=== PATIENT | female | born 1975 | race Caucasian/White ===

== ENCOUNTER 2018-05-07 12:26 | Emergency (ER) | payer MEDICAID ==
--- NOTE | 2018-05-07 12:37 | ERPHSYRPT ---
- History of Present Illness Time Seen by Provider: 05/07/18 12:36 Historian: patient Exam Limitations: no limitations Physician History: 42 y/o white female presents with sudden onset of upper abd pain. intermittently severe sharp and crampy. pt has had a cholecystectomy in the past. no n/v/d. no h/o ulcer dz. pt is currently on her menstrual period Timing/Duration: today, intermittent Quality: cramping, sharpness, stabbing Abdominal Pain Onset Location: epigastric Pain Radiation: no radiation Severity of Pain-Max: moderate Severity of Pain-Current: moderate Modifying Factors: Improves With: nothing Associated Symptoms: nausea, other (loose stools this am) Previous symptoms: no prior history Allergies/Adverse Reactions: No Known Drug Allergies Allergy (Verified 05/07/18 12:44) Hx Tetanus, Diphtheria Vaccination/Date Given: Yes (2010) Hx Influenza Vaccination/Date Given: No Hx Pneumococcal Vaccination/Date Given: No - Review of Systems Constitutional: No Symptoms Eyes: No Symptoms Ears, Nose, & Throat: No Symptoms Respiratory: No Symptoms Cardiac: No Symptoms Abdominal/Gastrointestinal: Abdominal Pain, Nausea, No Vomiting, No Diarrhea Genitourinary Symptoms: No Symptoms, No Dysuria, No Frequency, No Hematuria Musculoskeletal: No Symptoms Skin: No Symptoms Neurological: No Symptoms Psychological: Anxiety Endocrine: No Symptoms Hematologic/Lymphatic: No Symptoms Immunological/Allergic: No Symptoms All Other Systems: Reviewed and Negative - Past Medical History Pertinent Past Medical History: No Neurological History: No Pertinent History ENT History: No Pertinent History Cardiac History: No Pertinent History Respiratory History: No Pertinent History Endocrine Medical History: No Pertinent History Musculoskeletal History: No Pertinent History GI Medical History: No Pertinent History History: No Pertinent History Psycho-Social History: No Pertinent History Female Reproductive Disorders: No Pertinent History - Past Surgical History Past Surgical History: Yes Neuro Surgical History: No Pertinent History Cardiac: No Pertinent History Respiratory: No Pertinent History Gastrointestinal: No Pertinent History Genitourinary: No Pertinent History Musculoskeletal: No Pertinent History Female Surgical History: Tubal Ligation, Other Other Surgical History: tonsilectomy as child - Social History Smoking Status: Never smoker Exposure to second hand smoke: No Drug Use: none Patient Lives Alone: No - Nursing Vital Signs Nursing Vital Signs: Initial Vital Signs Temperature 97.3 F 05/07/18 12:31 Pulse Rate 62 05/07/18 12:31 Respiratory Rate 24 05/07/18 12:31 Blood Pressure 155/97 05/07/18 12:31 O2 Sat by Pulse Oximetry 100 05/07/18 12:31 Pain Scale Pain Intensity 0 - Physical Exam General Appearance: moderate distress, alert, anxiety Eye Exam: PERRL/EOMI, eyes nml inspection Ears, Nose, Throat Exam: normal ENT inspection, moist mucous membranes Neck Exam: normal inspection, non-tender, supple, full range of motion Respiratory Exam: normal breath sounds, lungs clear, airway intact, No chest tenderness, No respiratory distress, No accessory muscle use, No rhonchi, No wheezing, No stridor Cardiovascular Exam: regular rate/rhythm, normal heart sounds, normal peripheral pulses Gastrointestinal/Abdomen Exam: soft, normal bowel sounds, tenderness (epigastric ), guarding, No rebound Pelvic Exam: not done Rectal Exam: not done Back Exam: normal inspection, normal range of motion, No CVA tenderness, No vertebral tenderness Extremity Exam: normal inspection, normal range of motion, pelvis stable Neurologic Exam: alert, oriented x 3, cooperative, 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 Skin Exam: normal color, warm, dry Lymphatic Exam: No adenopathy SpO2 Interpretation: normal O2 Delivery: Room Air - Course Nursing assessment & vital signs reviewed: Yes EKG Interpreted by Me: RATE ([id number]), Sinus Rhythm, NORMAL AXIS, Non-specific ST Changes Ordered Tests: Active Orders 24 hr Category Date Time Status Clean Catch Urine Specimen STAT Care 05/07/18 12:42 Active EKG-ER Only STAT Care 05/07/18 12:42 Active IV Insertion STAT Care 05/07/18 12:42 Active ABDOMEN AND PELVIS W/0 CONTRAS [CT] Stat Exams 05/07/18 12:42 Completed AMYLASE Stat Lab 05/07/18 13:10 Completed CBC W DIFF Stat Lab 05/07/18 13:10 Completed CMP Stat Lab 05/07/18 13:10 Completed HCG QUALITATIVE,SERUM Stat Lab 05/07/18 13:10 Completed LIPASE Stat Lab 05/07/18 13:10 Completed Lactic Acid Stat Lab 05/07/18 12:50 Completed Lactic Acid Stat Lab 05/07/18 16:08 Results TROPONIN Q3H Lab 05/07/18 13:10 Completed TROPONIN Q3H Lab 05/07/18 16:17 Received TROPONIN Q3H Lab 05/07/18 19:00 Ordered TROPONIN Q3H Lab 05/07/18 22:00 Ordered UA W/RFX UR CULTURE Stat Lab 05/07/18 16:11 Completed Urine Triage Profile Stat Lab 05/07/18 16:11 Ordered Medication Summary Discontinued Medications Generic Name Dose Route Start Last Admin Trade Name Freq PRN Reason Stop Dose Admin Hydromorphone HCl 1 mg 05/07/18 12:42 05/07/18 12:56 Hydromorphone 1 Mg/Ml Ampule IV 05/07/18 12:43 1 mg STAT ONE Administration Hydromorphone HCl Confirm 05/07/18 12:50 Hydromorphone 1 Mg/Ml Ampule Administered 05/07/18 12:51 Dose 1 mg .ROUTE .STK-MED ONE Sodium Chloride 1,000 mls @ 999 mls/hr 05/07/18 12:42 05/07/18 15:04 Sodium Chloride 0.9% 1000 Ml IV 05/07/18 13:42 Infused .Q1H1M STA Infusion Sodium Chloride Confirm 05/07/18 12:50 Sodium Chloride 0.9% 1000 Ml Administered 05/07/18 12:51 Dose 1,000 mls @ ud .ROUTE .STK-MED ONE Sodium Chloride Confirm 05/07/18 13:29 Sodium Chloride 0.9% 1000 Ml Administered 05/07/18 13:30 Dose 1,000 mls @ ud .ROUTE .STK-MED ONE Ondansetron HCl 4 mg 05/07/18 12:42 05/07/18 12:56 Zofran 4 Mg/2 Ml Vial IV 05/07/18 12:43 4 mg STAT ONE Administration Ondansetron HCl Confirm 05/07/18 12:50 Zofran 4 Mg/2 Ml Vial Administered 05/07/18 12:51 Dose 4 mg .ROUTE .STK-MED ONE Lab/Rad Data: Laboratory Result Diagrams 05/07/18 13:10 05/07/18 13:10 Laboratory Results 05/07/18 05/07/18 05/07/18 Range/Units 16:11 16:08 13:10 WBC (4.0-10.5) K/mm3 RBC (4.1-5.4) M/mm3 Hgb (12.0-16.0) gm/dl Hct (35-47) % MCV (78-100) fl MCH (26-32) pg MCHC (32-36) g/dl RDW (11.5-14.0) % Plt Count (150-450) K/mm3 MPV (6-9.5) fl Gran % (36.0-66.0) % Eos # (Auto) (0-0.5) Absolute Lymphs (auto) (1.0-4.6) Absolute Monos (auto) (0.0-1.3) Lymphocytes % (24.0-44.0) % Monocytes % (0.0-12.0) % Eosinophils % (0.00-5.0) % Basophils % (0.0-0.4) % Absolute Granulocytes (1.4-6.9) Basophils # (0-0.4) Sodium (137-145) mmol/L Potassium (3.5-5.1) mmol/L Chloride (98-107) mmol/L Carbon Dioxide (22-30) mmol/L Anion Gap (5-15) MEQ/L BUN (7-17) mg/dL Creatinine (0.52-1.04) mg/dL Estimated GFR ML/MIN Glucose (74-106) mg/dL Lactic Acid 2.0 (0.4-2.0) Calcium (8.4-10.2) mg/dL Total Bilirubin (0.2-1.3) mg/dL AST (14-36) U/L ALT (0-35) U/L Alkaline Phosphatase (38-126) U/L Troponin I (0.000-0.034) ng/mL Serum Total Protein (6.3-8.2) g/dL Albumin (3.5-5.0) g/dL Amylase (30-110) U/L Lipase (23-300) U/L Serum , Qual NEGATIVE (Negative) Urine Color NELI (YELLOW) Urine Appearance CLEAR (CLEAR) Urine pH 5.0 (5-6) Ur Specific [place] 1.028 (1.005-1.025) Urine Protein NEGATIVE (Negative) Urine Ketones TRACE (NEGATIVE) Urine Blood SMALL (0-5) Jovany/ul Urine Nitrite NEGATIVE (NEGATIVE) Urine Bilirubin NEGATIVE (NEGATIVE) Urine Urobilinogen 4 (0-1) mg/dL Ur Leukocyte Esterase NEGATIVE (NEGATIVE) Urine WBC (Auto) 0-2 (0-5) /HPF Urine RBC (Auto) 6-10 (0-2) /HPF U Hyaline Cast (Auto) >50 (0-2) /LPF U Epithel Cells (Auto) RARE (FEW) /HPF Urine Bacteria (Auto) RARE (NEGATIVE) /HPF Urine Mucus (Auto) SLIGHT (NEGATIVE) /HPF Urine Culture Reflexed NO (NO) Urine Glucose NEGATIVE (NEGATIVE) mg/dL 05/07/18 05/07/18 05/07/18 Range/Units 13:10 13:10 13:10 WBC 11.3 H (4.0-10.5) K/mm3 RBC 4.93 (4.1-5.4) M/mm3 Hgb 14.1 (12.0-16.0) gm/dl Hct 42.9 (35-47) % MCV 87.0 (78-100) fl MCH 28.6 (26-32) pg MCHC 32.9 (32-36) g/dl RDW 13.7 (11.5-14.0) % Plt Count 313 (150-450) K/mm3 MPV 10.9 H (6-9.5) fl Gran % 75.5 H (36.0-66.0) % Eos # (Auto) 0.22 (0-0.5) Absolute Lymphs (auto) 1.63 (1.0-4.6) Absolute Monos (auto) 0.91 (0.0-1.3) Lymphocytes % 14.4 L (24.0-44.0) % Monocytes % 8.0 (0.0-12.0) % Eosinophils % 1.9 (0.00-5.0) % Basophils % 0.2 (0.0-0.4) % Absolute Granulocytes 8.53 H (1.4-6.9) Basophils # 0.02 (0-0.4) Sodium 139 (137-145) mmol/L Potassium 4.1 (3.5-5.1) mmol/L Chloride 107 (98-107) mmol/L Carbon Dioxide 22 (22-30) mmol/L Anion Gap 14.5 (5-15) MEQ/L BUN 14 (7-17) mg/dL Creatinine 0.78 (0.52-1.04) mg/dL Estimated GFR > 60.0 ML/MIN Glucose 142 H (74-106) mg/dL Lactic Acid (0.4-2.0) Calcium 10.9 H (8.4-10.2) mg/dL Total Bilirubin 0.80 (0.2-1.3) mg/dL AST 37 H (14-36) U/L ALT 33 (0-35) U/L Alkaline Phosphatase 116 (38-126) U/L Troponin I < 0.012 (0.000-0.034) ng/mL Serum Total Protein 7.6 (6.3-8.2) g/dL Albumin 4.1 (3.5-5.0) g/dL Amylase 73 (30-110) U/L Lipase 113 (23-300) U/L Serum , Qual (Negative) Urine Color (YELLOW) Urine Appearance (CLEAR) Urine pH (5-6) Ur Specific [place] (1.005-1.025) Urine Protein (Negative) Urine Ketones (NEGATIVE) Urine Blood (0-5) Jovany/ul Urine Nitrite (NEGATIVE) Urine Bilirubin (NEGATIVE) Urine Urobilinogen (0-1) mg/dL Ur Leukocyte Esterase (NEGATIVE) Urine WBC (Auto) (0-5) /HPF Urine RBC (Auto) (0-2) /HPF U Hyaline Cast (Auto) (0-2) /LPF U Epithel Cells (Auto) (FEW) /HPF Urine Bacteria (Auto) (NEGATIVE) /HPF Urine Mucus (Auto) (NEGATIVE) /HPF Urine Culture Reflexed (NO) Urine Glucose (NEGATIVE) mg/dL 05/07/18 Range/Units 12:50 WBC (4.0-10.5) K/mm3 RBC (4.1-5.4) M/mm3 Hgb (12.0-16.0) gm/dl Hct (35-47) % MCV (78-100) fl MCH (26-32) pg MCHC (32-36) g/dl RDW (11.5-14.0) % Plt Count (150-450) K/mm3 MPV (6-9.5) fl Gran % (36.0-66.0) % Eos # (Auto) (0-0.5) Absolute Lymphs (auto) (1.0-4.6) Absolute Monos (auto) (0.0-1.3) Lymphocytes % (24.0-44.0) % Monocytes % (0.0-12.0) % Eosinophils % (0.00-5.0) % Basophils % (0.0-0.4) % Absolute Granulocytes (1.4-6.9) Basophils # (0-0.4) Sodium (137-145) mmol/L Potassium (3.5-5.1) mmol/L Chloride (98-107) mmol/L Carbon Dioxide (22-30) mmol/L Anion Gap (5-15) MEQ/L BUN (7-17) mg/dL Creatinine (0.52-1.04) mg/dL Estimated GFR ML/MIN Glucose (74-106) mg/dL Lactic Acid 2.3 H (0.4-2.0) Calcium (8.4-10.2) mg/dL Total Bilirubin (0.2-1.3) mg/dL AST (14-36) U/L ALT (0-35) U/L Alkaline Phosphatase (38-126) U/L Troponin I (0.000-0.034) ng/mL Serum Total Protein (6.3-8.2) g/dL Albumin (3.5-5.0) g/dL Amylase (30-110) U/L Lipase (23-300) U/L Serum , Qual (Negative) Urine Color (YELLOW) Urine Appearance (CLEAR) Urine pH (5-6) Ur Specific [place] (1.005-1.025) Urine Protein (Negative) Urine Ketones (NEGATIVE) Urine Blood (0-5) Jovany/ul Urine Nitrite (NEGATIVE) Urine Bilirubin (NEGATIVE) Urine Urobilinogen (0-1) mg/dL Ur Leukocyte Esterase (NEGATIVE) Urine WBC (Auto) (0-5) /HPF Urine RBC (Auto) (0-2) /HPF U Hyaline Cast (Auto) (0-2) /LPF U Epithel Cells (Auto) (FEW) /HPF Urine Bacteria (Auto) (NEGATIVE) /HPF Urine Mucus (Auto) (NEGATIVE) /HPF Urine Culture Reflexed (NO) Urine Glucose (NEGATIVE) mg/dL - Progress Progress: improved, re-examined Progress Note: 05/07/18 16:43 ct abd/pelvis-no acute process. Counseled pt/family regarding: lab results, diagnosis, need for follow-up, rad results - Departure Time of Disposition: 16:43 Departure Disposition: Home Clinical Impression: Abdominal pain Condition: Stable Critical Care Time: No Referrals: LUDWIG RENEE [Primary Care Provider] - Additional Instructions: drink plenty of fluids. follow up with primary doctor for further management. add ibuprofen for pain Prescriptions: Hydrocodone/APAP 5-325 Tab^^^ [[place] 5-325 Tablet^^^] 1 tab PO Q8H PRN PRN #5 tablet MDD 3 PRN Reason: Pain
[2018-05-07] MEDS ORDERED: Sodium Chloride 0.9% 1000 ML 1,000 ML IV STA (12:42)
[2018-05-07] MEDS ORDERED: Hydromorphone 1 mg/ml Ampule IV ONE (12:42)
[2018-05-07] MEDS ORDERED: Zofran 4 MG/2 ML VIAL IV ONE (12:42)
[2018-05-07] MEDS ORDERED: Hydromorphone 1 mg/ml Ampule ONE (12:50)
[2018-05-07] MEDS ORDERED: Zofran 4 MG/2 ML VIAL ONE (12:50)
[2018-05-07] MEDS ORDERED: Sodium Chloride 0.9% 1000 ML 1,000 ML ONE ×2 (12:50→13:29)
[2018-05-07 12:55] LABS: Lactic Acid 2.3 (0.4-2.0)
[2018-05-07 13:16] LABS: BASOPHIL % 0.2 % (0.0-0.4); Basophil (Absolute #) 0.02 (0-0.4); Eosinophil % 1.9 % (0.00-5.0); Eosinophil (Absolute #) 0.22 (0-0.5); Granulocyte Absolute (ANC) 8.53 (1.4-6.9); Granulocytes % 75.5 % (36.0-66.0); Hematocrit 42.9 % (35-47); Hemoglobin 14.1 gm/dl (12.0-16.0); Lymphocyte (Absolute #) 1.63 (1.0-4.6); Lymphocytes % 14.4 % (24.0-44.0); Mean Corpuscular Hemoglobin 28.6 pg (26-32); Mean Corpuscular Hgb Concent. 32.9 g/dl (32-36); Mean Platelet Volume 10.9 fl (6-9.5); Monocyte (Absolute #) 0.91 (0.0-1.3); Platelet Count 313 K/mm3 (150-450); Red Blood Count 4.93 M/mm3 (4.1-5.4); Red Cell Distribution Width 13.7 % (11.5-14.0); White Blood Count 11.3 K/mm3 (4.0-10.5)
[2018-05-07 13:28] LABS: ALBUMIN 4.1 g/dL (3.5-5.0); ALKALINE PHOSPHATASE 116 U/L (38-126); AMYLASE 73 U/L (30-110); ANION GAP 14.5 MEQ/L (5-15); BLOOD UREA NITROGEN 14 mg/dL (7-17); CHLORIDE 107 mmol/L (98-107); Calcium 10.9 mg/dL (8.4-10.2); Carbon Dioxide 22 mmol/L (22-30); Creatinine 1 0.78 mg/dL (0.52-1.04); Glucose 142 mg/dL (74-106); LIPASE 113 U/L (23-300); Potassium 4.1 mmol/L (3.5-5.1); SGOT/AST 37 U/L (14-36); SGPT/ALT 33 U/L (0-35); SODIUM 139 mmol/L (137-145); Total Protein 7.6 g/dL (6.3-8.2)
--- NOTE | 2018-05-07 14:41 | XRAY ---
Indication: Intermittent abdominal pain. Nausea and dizziness. Multiple contiguous axial images obtained through the abdomen and pelvis without contrast as ordered. Comparison: None Lung bases are clear. Heart is not enlarged. Stomach is distended with food/fluid. Noncontrasted stomach and bowel loops appear nonobstructed. Normal appendix. Prominent uterus with probable 2 cm lower uterine segment fibroid and a tampon in situ. Tiny cul de sac free fluid. No free air. Previous cholecystectomy and borderline splenomegaly measuring 12.6 cm in greatest axial dimension. Remaining liver, pancreas, spleen, adrenal glands, kidneys, ureters, bladder, uterus, and aorta appear unremarkable for noncontrast exam. Osseous structures intact. No ventral or inguinal hernias. Impression: 1. Prominent uterus with tampon in situ presumed related to menses. Tiny cul de sac fluid presumed physiologic. Also probable lower uterine segment fibroid. 2. Borderline splenomegaly. 3. Remaining CT abdomen/pelvis without contrast exam is negative. CT DI 25.48
[2018-05-07 15:47] VITALS: O2SAT 97
[2018-05-07 16:32] LABS: Appearance CLEAR (CLEAR); Bacteria RARE /HPF (NEGATIVE); Bilirubin NEGATIVE (NEGATIVE); Blood SMALL Ery/ul (0-5); Epithelial Cells RARE /HPF (FEW); Glucose NEGATIVE (NEGATIVE); Hyaline Casts >50 /LPF (0-2); Ketones TRACE (NEGATIVE); Leukocyte Esterase NEGATIVE (NEGATIVE); Mucus SLIGHT /HPF (NEGATIVE); Nitrite NEGATIVE (NEGATIVE); Protein,Urine Dip NEGATIVE (Negative); Specific Gravity 1.028 (1.005-1.025); Urobilinogen 4 mg/dL (0-1); WBC 0-2 /HPF (0-5)
[2018-05-07 16:41] LABS: Amphetamine,Urine NEGATIVE (NEGATIVE); Barbiturate,Urine NEGATIVE (NEGATIVE); Benzodiazepine,Urine NEGATIVE (NEGATIVE); Cocaine,Urine NEGATIVE (NEGATIVE); Methadone,Urine NEGATIVE (NEGATIVE); Opiate,Urine POSITIVE (NEGATIVE); PCP,Urine NEGATIVE (NEGATIVE); THC,Urine NEGATIVE (NEGATIVE)
[2018-05-07 17:03] VITALS: BP 174/86; PULSE 74
== END 2018-05-07 17:03 | disposition home or self-care (01) ==
LOC: ED 12:26
DX: R10.13 Epigastric pain (principal)
CPT/HCPCS: 36000; 36415; 74176; 80053; 80307; 81001; 81025; 82150; 83605; 83690; 84484; 85025; 93005; 96360; 96374; 96375; 99284; J1170; J2405

== ENCOUNTER 2019-08-26 07:34 | Day surgery (SDC) | payer OTHER ==
[2019-08-26] MEDS ORDERED: CEFAZOLIN 2 GM-D5W BAG** 2 GM/50 ML ML IV SCH (08:00)
[2019-08-26] MEDS ORDERED: Lactated Ringers 1,000 ML IV SCH (08:00)
[2019-08-26] MEDS ORDERED: Lactated Ringers 1,000 ML IV ONE ×2 (08:14→08:42)
[2019-08-26] MEDS ORDERED: CEFAZOLIN 2 GM-D5W BAG** 2 GM/50 ML ML IV ONE (08:29)
[2019-08-26] MEDS ORDERED: Ketamine HCl 50 MG/ML ONE (09:27)
[2019-08-26] MEDS ORDERED: SUBLIMAZE 100 MCG/2 ML ONE ×2 (09:27→10:36)
[2019-08-26] MEDS ORDERED: Xylocaine-Mpf 2% 5 Ml Vial ONE (09:27)
[2019-08-26] MEDS ORDERED: DIPRIVAN 200 MG/20 ML IV ONE (09:27)
[2019-08-26] MEDS ORDERED: Zofran 4 MG/2 ML VIAL ONE ×2 (09:27→11:12)
[2019-08-26] MEDS ORDERED: Decadron 4 MG INJ ONE (09:27)
[2019-08-26] MEDS ORDERED: Zofran 4 MG/2 ML VIAL IV STA (11:11)
[2019-08-26 12:05] VITALS: BP 136/89; PULSE 76; O2SAT 99
--- NOTE | 2019-08-27 09:38 | OP ---
SURGERY DATE/TIME: 08/26/2019 0933 PREOPERATIVE DIAGNOSIS: Menorrhagia. POSTOPERATIVE DIAGNOSIS: Menorrhagia. PROCEDURE: Hysteroscopy, D&C with NovaSure ablation. SURGEON: Kwadwo Cardozo D.O. VP DESIGN: Hamzah Faulkner surgical instrument mechanic. ANESTHESIA: General. ESTIMATED BLOOD LOSS: Minimal. COMPLICATIONS: None. INDICATIONS: The risks, benefits, indications and alternatives of the procedure were reviewed with the patient prior to the procedure. The patient understood the risk of infection, bleeding, bowel injury, bladder injury, ureteral injury, uterine perforation as well as infection, thromboembolic disorder associated with the procedure surgery and desires to have this procedure as a possible means to alleviate her current medical condition. DESCRIPTION OF PROCEDURE AND FINDINGS: At this point the patient is taken to the operating room, given general sedation, placed in dorsal lithotomy position. Prepped and draped in the usual sterile fashion. A weighted speculum is then placed in the patient's vagina and the anterior lip of the cervix was grasped with a single tooth tenaculum. Endocervical dilators are advanced through the endocervical canal as a means to dilate the cervix and at this point a hysteroscope was then placed through the endocervical canal where visualization of the endometrial cavity appeared to be within normal limits with no gross abnormalities. From this point the hysteroscope was removed. A curette is then placed into the fundus of the uterus and curettage is performed in all quadrants retrieving a mild to moderate amount of tissue. From this point the curette is then removed. There was minimal bleeding that was noted. At this point the Novasure instrument was then placed through the endocervical canal where the length was 6 cm and the width was measured at 3.4 cm and the NovaSure was then engaged and the machine was turned on for approximately 1 minute and 30 seconds of ablative time. At this point after completion of the ablation the instrument was disengaged and was removed from the uterine cavity. All subsequent instruments were then removed from the patient's vaginal region. The patient was then taken out of the dorsal lithotomy position, was taken out of anesthesia and was then taken to the recovery room in stable condition. All instruments and laps were accounted for x2.
== END 2019-08-26 11:52 | disposition home or self-care (01) ==
LOC: SDC 07:34
PROVIDERS: ATTEND Obstetrics & Gynecology
DX: N92.0 Excessive and frequent menstruation with regular cycle (principal)
CPT/HCPCS: 84703; J0690; J1100; J2405; J2704; J3010

== ENCOUNTER 2019-08-26 15:17 | Emergency (ER) | payer OTHER ==
[2019-08-26] MEDS ORDERED: MORPHINE SULFATE 4 MG INJ IV ONE (15:50)
[2019-08-26] MEDS ORDERED: MORPHINE SULFATE 4 MG INJ ONE (15:52)
--- NOTE | 2019-08-26 16:14 | ERPHSYRPT ---
- History of Present Illness Time Seen by Provider: 08/26/19 15:30 Historian: patient Exam Limitations: no limitations Patient Subjective Stated Complaint: Abdominal pain Triage Nursing Assessment: Patient . Physician History: Patient is a 43-year-old female who presents to our ED with pelvic pain as a referral from her ccnp. Patient had an ablation today. Patient was done this morning. Patient was prescribed [place] pain medication. At approximately noon patient developed worsening pain beyond what she would expect for postoperative pain. Patient took a [place] pill. Patient states the pain was not better. Patient called her ccnp who advised that she come to our ED for evaluation. Patient ccnp requested that we order some basic labs and CAT scan. No associated fevers. No nausea or vomiting. No diaphoresis. No vaginal discharge. Pain is well localized. No radiation. No significant worsening or improving factors. Patient is otherwise generally healthy. at bedside. They voiced no other complaints at this time. Timing/Duration: today Activities at Onset: none Quality: aching Abdominal Pain Onset Location: other (Pain is across her lower abdomen.) Severity of Pain-Max: moderate Severity of Pain-Current: mild Modifying Factors: Improves With: nothing Associated Symptoms: denies symptoms, No chest pain, No diaphoresis, No diarrhea, No fatigue, No heartburn, No rash, No syncope, No vomiting Previous symptoms: no prior history Allergies/Adverse Reactions: No Known Drug Allergies Allergy (Verified 08/26/19 15:28) Home Medications: Lisinopril/Hydrochlorothiazide [Lisinopril-Hctz 20-12.5 mg Tab] 1 each PO DAILY 08/25/19 [History] Hx Tetanus, Diphtheria Vaccination/Date Given: Yes (2010) Hx Influenza Vaccination/Date Given: No Hx Pneumococcal Vaccination/Date Given: No Immunizations Up to Date: Yes Travel Risk - International Travel Have you traveled outside of the country in past 3 weeks: No - Coronavirus Screening Close contact with a COVID-19 positive Pt in past 14-21 Days: No - Review of Systems Constitutional: No Symptoms, No Fever, No Chills Eyes: No Symptoms Ears, Nose, & Throat: No Symptoms Respiratory: No Symptoms, No Cough, No Dyspnea Cardiac: No Symptoms, No Chest Pain, No Edema, No Syncope Abdominal/Gastrointestinal: No Symptoms, No Abdominal Pain, No Nausea, No Vomiting, No Diarrhea Genitourinary Symptoms: No Symptoms, No Dysuria Musculoskeletal: No Symptoms, No Back Pain, No Neck Pain Skin: No Symptoms, No Rash Neurological: No Symptoms, No Dizziness, No Focal Weakness, No Sensory Changes Psychological: No Symptoms Endocrine: No Symptoms Hematologic/Lymphatic: No Symptoms Immunological/Allergic: No Symptoms All Other Systems: Reviewed and Negative - Past Medical History Pertinent Past Medical History: No Neurological History: No Pertinent History ENT History: No Pertinent History Cardiac History: Hypertension Respiratory History: No Pertinent History Endocrine Medical History: No Pertinent History Musculoskeletal History: No Pertinent History GI Medical History: No Pertinent History History: No Pertinent History Psycho-Social History: No Pertinent History Female Reproductive Disorders: Menstrual Problems - Past Surgical History Past Surgical History: Yes Neuro Surgical History: No Pertinent History Cardiac: No Pertinent History Respiratory: No Pertinent History Gastrointestinal: Cholecystectomy Genitourinary: No Pertinent History Musculoskeletal: No Pertinent History Female Surgical History: Tubal Ligation, Other Other Surgical History: tonsilectomy as child - Social History Smoking Status: Never smoker Exposure to second hand smoke: No Drug Use: none Patient Lives Alone: No - Female History Hx Now: No - Nursing Vital Signs Nursing Vital Signs: Initial Vital Signs Temperature 98.0 F 08/26/19 15:30 Pulse Rate 77 08/26/19 15:30 Respiratory Rate 18 08/26/19 15:30 Blood Pressure 162/95 08/26/19 15:30 O2 Sat by Pulse Oximetry 98 08/26/19 15:30 Pain Scale Pain Intensity 5 - Physical Exam General Appearance: no apparent distress, alert Eye Exam: PERRL/EOMI, eyes nml inspection Ears, Nose, Throat Exam: normal ENT inspection, pharynx normal, other (Dry appearing oral mucous membranes.) Neck Exam: normal inspection, non-tender, supple, full range of motion Respiratory Exam: normal breath sounds, lungs clear, No respiratory distress Cardiovascular Exam: regular rate/rhythm, normal heart sounds Gastrointestinal/Abdomen Exam: soft, tenderness, No distention, No mass, No pulsatile mass, No hernia Pelvic Exam: not done Rectal Exam: deferred Back Exam: normal inspection, normal range of motion, No CVA tenderness, No vertebral tenderness Extremity Exam: normal inspection, normal range of motion, pelvis stable Neurologic Exam: alert, oriented x 3, cooperative, normal mood/affect, nml cerebellar function, sensation nml, No motor deficits Skin Exam: normal color, warm, dry SpO2 Interpretation: normal SpO2: 98 O2 Delivery: Room Air - Course Nursing assessment & vital signs reviewed: Yes - CT Exams Abdomen CT Interpretation: Tele-radiologist Report (New endometrial cavity air bubbles presumed related to recent surgery. Remaining CT abdomen pelvis without contrast exam is negative.) Ordered Tests: Active Orders 24 hr Category Date Time Status IV Insertion STAT Care 08/26/19 15:23 Active ABDOMEN AND PELVIS W/0 CONTRAS [CT] Stat Exams 08/26/19 15:22 Completed CBC W DIFF Stat Lab 08/26/19 16:00 Completed CMP Stat Lab 08/26/19 16:00 Completed UA W/RFX UR CULTURE Stat Lab 08/26/19 15:35 Ordered Medication Summary Discontinued Medications Generic Name Dose Route Start Last Admin Trade Name Freq PRN Reason Stop Dose Admin Morphine Sulfate 4 mg 08/26/19 15:50 08/26/19 15:56 Morphine Sulfate 4 Mg Inj IV 08/26/19 15:51 4 mg STAT ONE Administration Morphine Sulfate Confirm 08/26/19 15:52 Morphine Sulfate 4 Mg Inj Administered 08/26/19 15:53 Dose 4 mg .ROUTE .[employer] ONE Lab/Rad Data: Laboratory Result Diagrams 08/26/19 16:00 08/26/19 16:00 Laboratory Results 08/26/19 08/26/19 Range/Units 16:00 16:00 WBC 13.9 H (4.0-10.5) K/mm3 RBC 4.84 (4.1-5.4) M/mm3 Hgb 14.1 (12.0-16.0) gm/dl Hct 42.8 (35-47) % MCV 88.4 (78-100) fl MCH 29.1 (26-32) pg MCHC 32.9 (32-36) g/dl RDW 13.9 (11.5-14.0) % Plt Count 312 (150-450) K/mm3 MPV 12.1 H (7.5-11.0) fl Gran % 90.8 H (36.0-66.0) % Eos # (Auto) 0.01 (0-0.5) Absolute Lymphs (auto) 1.07 (1.0-4.6) Absolute Monos (auto) 0.18 (0.0-1.3) Lymphocytes % 7.7 L (24.0-44.0) % Monocytes % 1.3 (0.0-12.0) % Eosinophils % 0.1 (0.00-5.0) % Basophils % 0.1 (0.0-0.4) % Absolute Granulocytes 12.58 H (1.4-6.9) Basophils # 0.02 (0-0.4) Sodium 137 (137-145) mmol/L Potassium 3.9 (3.5-5.1) mmol/L Chloride 105 (98-107) mmol/L Carbon Dioxide 21 L (22-30) mmol/L Anion Gap 14.5 (5-15) MEQ/L BUN 10 (7-17) mg/dL Creatinine 0.62 (0.52-1.04) mg/dL Estimated GFR > 60.0 ML/MIN Glucose 138 H (74-106) mg/dL Calcium 11.2 H (8.4-10.2) mg/dL Total Bilirubin 0.70 (0.2-1.3) mg/dL AST 42 H (14-36) U/L ALT 30 (0-35) U/L Alkaline Phosphatase 81 (38-126) U/L Serum Total Protein 8.2 (6.3-8.2) g/dL Albumin 4.5 (3.5-5.0) g/dL - Progress Progress: improved Progress Note: 08/26/19 16:59 Patient reassessed. Pain significantly improved. Patient feels much better. Patient has no appetite is requesting water. Case discussed with Dr. Cardozo. I reviewed the CT results in detail. The air bubbles in the endometrial cavity is due to recent surgery. Patient has [place] and doxycycline at home. They fill the prescription provided to them by Dr. Cardozo. Patient now requesting discharge. Patient agrees to follow-up with her primary care doctor within 48 hours for reevaluation. Discussed with : Other (Juliane) Will see patient in: office Counseled pt/family regarding: lab results, diagnosis, need for follow-up, rad results - Departure Departure Disposition: Home, [place] [place] Impression: Pelvic pain, Post-op pain Condition: Stable Critical Care Time: No Referrals: LUDWIG RENEE [Primary Care Provider] - Additional Instructions: Discharge/Care Plan IKER CHAVEZ was seen on 08/26/19 in the Emergency Room. The patient was counseled regarding Diagnosis,Lab results, Imaging studies, need for follow up and when to return to the Emergency Room. Prescriptions given: Discharge Note I have spoken with the patient and/or caregivers. I have explained the patient's condition, diagnosis and treatment plan based on the information available to me at this time. I have answered the patient's and/or caregiver's questions and addressed any concerns. The patient and/or caregivers have as good understanding of the patient's diagnosis, condition and treatment plan as can be expected at this point. The vital signs have been stable. The patient's condition is stable and appropriate for discharge from the emergency department. The patient will pursue further outpatient evaluation with the primary care physician or other designated or consulting physician as outlined in the discharge instructions. The patient and/or caregivers are agreeable to this plan of care and follow-up instructions have been explained in detail. The patient and/or caregivers have received these instruction. The patient/and or caregivers are aware that any significant change in condition or worsening of symptoms should prompt an immediate return to this or the closest emergency department or call 911.
[2019-08-26 16:21] LABS: Absolute Neutrophil Ct (ANC) 12.58 (1.4-6.9); BASOPHIL % 0.1 % (0.0-0.4); Basophil (Absolute #) 0.02 (0-0.4); Eosinophil % 0.1 % (0.00-5.0); Eosinophil (Absolute #) 0.01 (0-0.5); Hematocrit 42.8 % (35-47); Hemoglobin 14.1 gm/dl (12.0-16.0); Lymphocyte (Absolute #) 1.07 (1.0-4.6); Lymphocytes % 7.7 % (24.0-44.0); Mean Cell Volume 88.4 fl (78-100); Mean Corpuscular Hemoglobin 29.1 pg (26-32); Mean Corpuscular Hgb Concent. 32.9 g/dl (32-36); Mean Platelet Volume 12.1 fl (7.5-11.0); Monocyte (Absolute #) 0.18 (0.0-1.3); Monocytes % 1.3 % (0.0-12.0); Neutrophil % 90.8 % (36.0-66.0); Platelet Count 312 K/mm3 (150-450); Red Blood Count 4.84 M/mm3 (4.1-5.4); Red Cell Distribution Width 13.9 % (11.5-14.0); White Blood Count 13.9 K/mm3 (4.0-10.5)
[2019-08-26 16:33] LABS: Appearance CLEAR (CLEAR); Bilirubin NEGATIVE (NEGATIVE); Blood SMALL Ery/ul (0-5); Glucose NEGATIVE (NEGATIVE); Ketones NEGATIVE (NEGATIVE); Leukocyte Esterase NEGATIVE (NEGATIVE); Mucus SLIGHT /HPF (NEGATIVE); Nitrite NEGATIVE (NEGATIVE); Protein,Urine Dip NEGATIVE (Negative); RBC 0-2 /HPF (0-2); Specific Gravity 1.016 (1.005-1.025); Urobilinogen NEGATIVE mg/dL (0-1)
[2019-08-26 16:38] LABS: ALBUMIN 4.5 g/dL (3.5-5.0); ALKALINE PHOSPHATASE 81 U/L (38-126); ANION GAP 14.5 MEQ/L (5-15); BLOOD UREA NITROGEN 10 mg/dL (7-17); CHLORIDE 105 mmol/L (98-107); Calcium 11.2 mg/dL (8.4-10.2); Carbon Dioxide 21 mmol/L (22-30); Creatinine 1 0.62 mg/dL (0.52-1.04); Glucose 138 mg/dL (74-106); Potassium 3.9 mmol/L (3.5-5.1); SGOT/AST 42 U/L (14-36); SGPT/ALT 30 U/L (0-35); SODIUM 137 mmol/L (137-145); Total Protein 8.2 g/dL (6.3-8.2)
--- NOTE | 2019-08-26 16:41 | XRAY ---
Indication: Pain. Status post D&C/ablation. Multiple contiguous axial images obtained through the abdomen and pelvis without contrast as ordered. Comparison: May 07, 2018. Lung bases demonstrates minimal left base atelectasis/scarring. No infiltrate or effusion. Heart is not enlarged. Stomach is mildly distended with food/fluid. Noncontrasted stomach and bowel loops appear nonobstructed. Normal appendix. No free fluid/air. Uterus demonstrates a few endometrial cavity air bubbles presumed related to recent surgery. Stable cholecystectomy and a few splenic calcified granulomas. Remaining liver, pancreas, spleen, adrenal glands, kidneys, ureters, bladder, and aorta appear unremarkable for noncontrast exam. Osseous structures intact. Impression: 1. New endometrial cavity air bubbles presumed related to recent surgery. 2. Remaining CT abdomen/pelvis without contrast exam is negative.
[2019-08-26 16:59] VITALS: O2SAT 98
[2019-08-26 17:09] VITALS: BP 145/77; PULSE 72
== END 2019-08-26 17:10 | disposition home or self-care (01) ==
LOC: ED 15:17
DX: R10.2 Pelvic and perineal pain (principal)
CPT/HCPCS: 36000; 36415; 74176; 80053; 81001; 85025; 96374; 99284; J2270

== ENCOUNTER 2020-04-03 22:23 | Emergency (ER) | payer OTHER ==
--- NOTE | 2020-04-03 22:24 | ERPHSYRPT ---
- History of Present Illness Time Seen by Provider: 04/03/20 22:24 Source: patient Exam Limitations: no limitations Physician History: This is a 44-year-old white female who was rollerskating prior to arrival to the emergency department. The patient is right-handed and she fell onto her right outstretched hand injuring her right wrist. Patient did not take any medication prior to arrival. She had full range of motion upon arrival to the emergency department. She has no other areas of injury. She has no other complaints of pain. Occurred: just prior to arrival Method of Injury: fell Quality: aching, throbbing Severity of Pain-Max: moderate Severity of Pain-Current: mild Extremities Pain Location: wrist: right Modifying Factors: Improves With: movement Associated Symptoms: none Allergies/Adverse Reactions: No Known Drug Allergies Allergy (Verified 08/26/19 15:28) Home Medications: Lisinopril/Hydrochlorothiazide [Lisinopril-Hctz 20-12.5 mg Tab] 1 each PO DAILY 08/25/19 [History] Hx Tetanus, Diphtheria Vaccination/Date Given: Yes (2010) Hx Influenza Vaccination/Date Given: No Hx Pneumococcal Vaccination/Date Given: No Travel Risk - International Travel Have you traveled outside of the country in past 3 weeks: No - Coronavirus Screening Are you exhibiting any of the following symptoms?: No Close contact with a COVID-19 positive Pt in past 14-21 Days: No - Review of Systems Constitutional: No Symptoms Eyes: No Symptoms Ears, Nose, & Throat: No Symptoms Respiratory: No Symptoms Cardiac: No Symptoms Abdominal/Gastrointestinal: No Symptoms Genitourinary Symptoms: No Symptoms Musculoskeletal: Fall, Injury (Right wrist) Skin: No Symptoms Neurological: No Symptoms Psychological: No Symptoms Endocrine: No Symptoms Hematologic/Lymphatic: No Symptoms Immunological/Allergic: No Symptoms All Other Systems: Reviewed and Negative - Past Medical History Pertinent Past Medical History: No Neurological History: No Pertinent History ENT History: No Pertinent History Cardiac History: Hypertension Respiratory History: No Pertinent History Endocrine Medical History: No Pertinent History Musculoskeletal History: No Pertinent History GI Medical History: No Pertinent History History: No Pertinent History Psycho-Social History: No Pertinent History Female Reproductive Disorders: Menstrual Problems - Past Surgical History Past Surgical History: Yes Neuro Surgical History: No Pertinent History Cardiac: No Pertinent History Respiratory: No Pertinent History Gastrointestinal: Cholecystectomy Genitourinary: No Pertinent History Musculoskeletal: No Pertinent History Female Surgical History: Tubal Ligation, Other Other Surgical History: tonsilectomy as child - Social History Smoking Status: Never smoker Exposure to second hand smoke: No Drug Use: none Patient Lives Alone: No - Nursing Vital Signs Nursing Vital Signs: Initial Vital Signs Pulse Rate 88 04/03/20 22:23 Respiratory Rate 18 04/03/20 22:23 Blood Pressure 161/105 04/03/20 22:23 O2 Sat by Pulse Oximetry 100 04/03/20 22:23 Pain Scale Pain Intensity 6 - Physical Exam General Appearance: no apparent distress, alert, anxiety Eyes, Ears, Nose, Throat Exam: normal ENT inspection, moist mucous membranes Neck Exam: normal inspection, non-tender, supple, full range of motion Cardiovascular/Respiratory Exam: chest non-tender, no respiratory distress Abdominal Exam: non-tender Back Exam: normal inspection, normal range of motion, No CVA tenderness, No vertebral tenderness Shoulder Exam: normal inspection, non-tender, no evidence of injury, normal ROM Elbow/Forearm Exam: normal inspection, non-tender, no evidence of injury, normal ROM Wrist Exam: normal ROM, bone tenderness, soft tissue tenderness, No deformity Hand Exam: normal inspection, non-tender, no evidence of injury, normal ROM Neuro/Tendon Exam: normal sensation, normal motor functions, normal tendon functions, responds to pain Mental Status Exam: alert, oriented x 3, cooperative Skin Exam: normal color, warm, dry SpO2 Interpretation: normal O2 Delivery: Room Air Procedures - Splinting Location of Splint: Right, Wrist Type of Splint: Velcro Splint Splint Applied By: ED Nurse Pre-Proc Neuro Vasc Exam: normal Post-Proc Neuro Vasc Exam: neurovascular intact - Course Nursing assessment & vital signs reviewed: Yes Ordered Tests: Active Orders 24 hr Category Date Time Status WRIST (MIN 3 VIEWS) Stat Exams 04/03/20 23:30 Taken Medication Summary Discontinued Medications Generic Name Dose Route Start Last Admin Trade Name Martha PRN Reason Stop Dose Admin Ibuprofen 600 mg 04/03/20 22:49 04/03/20 22:56 Motrin 600 Mg PO 04/03/20 22:50 600 mg STAT ONE Administration Ibuprofen Confirm 04/03/20 22:56 Motrin 600 Mg Administered 04/03/20 22:57 Dose 600 mg .ROUTE .STK-MED ONE - Progress Progress: improved, pain not gone completely, re-examined Progress Note: 04/03/20 23:51 X-ray of right wrist reveals no evidence of any acute fracture or dislocation. Counseled pt/family regarding: diagnosis, need for follow-up, rad results - Departure Departure Disposition: Home Clinical Impression: Right wrist sprain Condition: Stable Critical Care Time: No Referrals: LUDWIG VALENZUELA [Primary Care Provider] - Additional Instructions: Use Tylenol and ibuprofen for pain control. Wear right wrist splint. Ice pack to area 2-3 times a day for the next 3 days. Follow-up with your primary care physician or [facility] orthopedic clinic if symptoms persist beyond the next 3 days.
[2020-04-03] MEDS ORDERED: MOTRIN 600 MG PO ONE (22:49)
[2020-04-03] MEDS ORDERED: MOTRIN 600 MG ONE (22:56)
[2020-04-03] MEDS ORDERED: NORCO 5/325 MG PO ONE (23:53)
[2020-04-03] MEDS ORDERED: NORCO 5/325 MG ONE (23:56)
[2020-04-04 00:16] VITALS: BP 144/108; PULSE 74; O2SAT 99
--- NOTE | 2020-04-04 08:28 | XRAY ---
Indication: Pain following fall. Comparison: None 3 view right wrist demonstrates mild radiocarpal joint space narrowing. No other bony, articular, or soft tissue abnormalities.
== END 2020-04-04 00:16 | disposition home or self-care (01) ==
LOC: ED 22:23
DX: M25.531 Pain in right wrist (principal); S63.501A Unspecified sprain of right wrist, initial encounter; W18.39XA Other fall on same level, initial encounter
CPT/HCPCS: 73110; 99283; L3908; A9270-GY

== ENCOUNTER 2022-10-19 06:50 | Observation (INO) | payer OTHER ==
[2022-10-19] MEDS ORDERED: BABY ASPIRIN 81 MG CHEW PO ONE (07:26)
[2022-10-19] MEDS ORDERED: MORPHINE SULFATE 4 MG INJ IV ONE (07:26)
[2022-10-19] MEDS ORDERED: Zofran 4 MG/2 ML VIAL IV ONE (07:26)
[2022-10-19 07:33] LABS: Absolute Neutrophil Ct (ANC) 5.47 x10^3/uL (1.4-6.9); BASOPHIL % 0.7 % (0.0-0.4); Basophil (Absolute #) 0.06 x10^3/uL (0-0.4); Eosinophil (Absolute #) 0.18 x10^3/uL (0-0.5); Hematocrit 45.7 % (35-47); Hemoglobin 15.2 g/dL (12.0-16.0); IMMATURE GRAN # 0.07 x10^3u/L (0.00-0.03); IMMATURE GRAN % 0.8 % (0.00-0.4); Lymphocyte (Absolute #) 2.55 x10^3/uL (1.0-4.6); Lymphocytes % 27.8 % (24.0-44.0); Mean Cell Volume 90.7 fL (78-100); Mean Corpuscular Hemoglobin 30.2 pg (26-32); Mean Corpuscular Hgb Concent. 33.3 g/dL (32-36); Mean Platelet Volume 10.2 fL (7.5-11.0); Monocyte (Absolute #) 0.83 x10^3/uL (0.0-1.3); Monocytes % 9.1 % (0.0-12.0); Neutrophil % 59.6 % (36.0-66.0); Platelet Count 377 x10^3/uL (150-450); Red Blood Count 5.04 x10^6/uL (4.1-5.4); Red Cell Distribution Width 13.1 % (11.5-14.0); White Blood Count 9.2 x10^3/uL (4.0-10.5)
[2022-10-19] MEDS ORDERED: BABY ASPIRIN 81 MG CHEW ONE (07:33)
--- NOTE | 2022-10-19 07:45 | ERPHSYRPT ---
- History of Present Illness Time Seen by Provider: 10/19/22 07:25 Historian: patient Exam Limitations: no limitations Patient Subjective Stated Complaint: pt states I have this pain that starts in my jaw and moves down my left arm Triage Nursing Assessment: pt ambulated into the er; pt is axo x4; c/o left arm pain; pt states pain radiates from jaw to left arm; c/o nausea; clear apical heart tone; clear lung sounds in all lobes; strong connor radial pulses; strong connor pedal pulses; no edema present; no respiratory distress present; skin PDW; vit als wnl Physician History: 46 years old female with history of hypertension presented to the ER with chief complaint of left jaw and arm pain. Patient reports last night she noted pain in the left arm and then short duration pain in the left chest before she went to bed. This morning she woke up with pain in the left jaw with radiation to left thumb, dull aching to sharp, moderate intensity without any significant aggravating or relieving factors. Denies associated shortness of breath or palpitations. Does have a positive family history of coronary artery disease. Denies any calf swelling, does not take any hormonal pills, no history of PE/DVT. Timing/Duration: yesterday, intermittent, gradual onset, improved Activities at Onset: rest, sleep Quality: dullness, sharpness Location: other Chest Pain Radiation: jaw, arm Severity of Pain-Max: moderate Severity of Pain-Current: mild Modifying Factors: Improves With: nothing Associated Symptoms: denies symptoms Prior Chest Pain/Cardiac Workup: no prior chest pain, no prior cardiac workup Nitro Today/Relief: no nitro taken today Aspirin Treatment Today: no aspirin today Allergies/Adverse Reactions: No Known Drug Allergies Allergy (Verified 10/19/22 07:09) Home Medications: Lisinopril/Hydrochlorothiazide [Lisinopril-Hctz 20-12.5 mg Tab] 1 each PO DAILY 08/25/19 [History] Azithromycin [Azithromycin 250 mg Pack] 250 mg PO DAILY 10/19/22 [History] Semaglutide [Ozempic] 0.25 mg SQ WEEKLY 10/19/22 [History] Hx Tetanus, Diphtheria Vaccination/Date Given: No Hx Influenza Vaccination/Date Given: No Hx Pneumococcal Vaccination/Date Given: No Travel Risk - International Travel Have you traveled outside of the country in past 3 weeks: No - Coronavirus Screening Are you exhibiting any of the following symptoms?: No Close contact with a COVID-19 positive Pt in past 14-21 Days: No - Vaccine Status Have you recieved a Covid-19 vaccination: Yes Knot Borer: Moderna - Vaccination Dates Date of 2cond Vaccination (if applicable): unknown - Review of Systems Constitutional: No Symptoms Eyes: No Symptoms Ears, Nose, & Throat: No Symptoms Respiratory: No Symptoms Cardiac: Chest Pain Abdominal/Gastrointestinal: No Symptoms Genitourinary Symptoms: No Symptoms Musculoskeletal: No Symptoms, Myalgias Skin: No Symptoms Neurological: Headache Psychological: No Symptoms Endocrine: No Symptoms Hematologic/Lymphatic: No Symptoms - Past Medical History Pertinent Past Medical History: Yes Neurological History: No Pertinent History ENT History: No Pertinent History Cardiac History: Hypertension Respiratory History: No Pertinent History Endocrine Medical History: No Pertinent History Musculoskeletal History: No Pertinent History GI Medical History: No Pertinent History History: No Pertinent History Psycho-Social History: No Pertinent History Female Reproductive Disorders: Menstrual Problems - Past Surgical History Past Surgical History: Yes Neuro Surgical History: No Pertinent History Cardiac: No Pertinent History Respiratory: No Pertinent History Gastrointestinal: Cholecystectomy Genitourinary: No Pertinent History Musculoskeletal: No Pertinent History Female Surgical History: Tubal Ligation, Other Other Surgical History: tonsilectomy as child - Social History Smoking Status: Never smoker Exposure to second hand smoke: No Drug Use: none Patient Lives Alone: No - Female History Hx Now: (unkn) - Nursing Vital Signs Nursing Vital Signs: Initial Vital Signs Temperature 98.3 F 10/19/22 06:58 Pulse Rate 76 10/19/22 06:58 Respiratory Rate 20 10/19/22 06:58 Blood Pressure 141/87 10/19/22 06:58 O2 Sat by Pulse Oximetry 96 10/19/22 06:58 Pain Scale Pain Intensity [Left Arm] 4 Pain Intensity 0 - Physical Exam General Appearance: no apparent distress, alert Eye Exam: PERRL/EOMI Ears, Nose, Throat Exam: normal ENT inspection, TMs normal, pharynx normal, moist mucous membranes Neck Exam: normal inspection, non-tender, supple, full range of motion Respiratory Exam: normal breath sounds, lungs clear Cardiovascular Exam: regular rate/rhythm, normal heart sounds Gastrointestinal/Abdomen Exam: soft, normal bowel sounds, No tenderness Extremity Exam: normal inspection, normal range of motion Neurologic Exam: alert, oriented x 3, cooperative, plug saw operator II-XII nml as tested, normal mood/affect, nml station & gait, sensation nml, No nml cerebellar function, No motor deficits Skin Exam: normal color SpO2 Interpretation: normal SpO2: 96 O2 Delivery: Room Air - Course EKG Interpreted by Me: RATE, Sinus Rhythm, NORMAL AXIS, NORMAL INTERVALS, Other (ST depression in anterolateral leads... Second EKG time 903. Rate 65 bpm, normal sinus rhythm, normal axis, normal intervals, no ST depressions or elevations.) Ordered Tests: Active Orders 24 hr Category Date Time Status Parts Identification Technician STAT Care 10/19/22 07:27 Active EKG-ER Only STAT Care 10/19/22 07:26 Active IV Insertion STAT Care 10/19/22 07:26 Active CHEST 1 VIEW (PORTABLE) Stat Exams 10/19/22 07:27 Completed CBC W DIFF Stat Lab 10/19/22 07:30 Completed CK-Creatinine Phosphokinase Stat Lab 10/19/22 07:30 Completed CMP Stat Lab 10/19/22 07:30 Completed NT PRO BNPII Stat Lab 10/19/22 07:30 Completed TROPONIN Q4H Lab 10/19/22 07:30 Completed TROPONIN Q4H Lab 10/19/22 11:30 Ordered TROPONIN Q4H Lab 10/19/22 15:30 Ordered Medication Summary Discontinued Medications Generic Name Dose Route Start Last Admin Trade Name Wesleyq PRN Reason Stop Dose Admin Aspirin 324 mg 10/19/22 07:26 10/19/22 07:33 Aspirin 81 Mg Tab.Chew PO 10/19/22 07:27 324 mg STAT ONE Administration Aspirin Confirm 10/19/22 07:33 Aspirin 81 Mg Tab.Chew Administered 10/19/22 07:34 Dose 324 mg .ROUTE .STK-MED ONE Morphine Sulfate 4 mg 10/19/22 07:26 10/19/22 07:32 Morphine Sulfate 4 Mg/Ml Injection IV 10/19/22 07:27 Not Given STAT ONE Ondansetron HCl 4 mg 10/19/22 07:26 10/19/22 07:32 Ondansetron Hcl 4 Mg/2 Ml Vial IV 10/19/22 07:27 Not Given STAT ONE Lab/Rad Data: Laboratory Result Diagrams 10/19/22 07:30 10/19/22 07:30 Laboratory Results 10/19/22 10/19/22 10/19/22 Range/Units 07:30 07:30 07:30 WBC 9.2 (4.0-10.5) x10^3/uL RBC 5.04 (4.1-5.4) x10^6/uL Hgb 15.2 (12.0-16.0) g/dL Hct 45.7 (35-47) % MCV 90.7 (78-100) fL MCH 30.2 (26-32) pg MCHC 33.3 (32-36) g/dL RDW 13.1 (11.5-14.0) % Plt Count 377 (150-450) x10^3/uL MPV 10.2 (7.5-11.0) fL Gran % 59.6 (36.0-66.0) % Immature Gran % (Auto) 0.8 H (0.00-0.4) % Nucleat RBC Rel Count 0.0 (0.00-0.1) % Eos # (Auto) 0.18 (0-0.5) x10^3/uL Immature Gran # (Auto) 0.07 H (0.00-0.03) x10^3u/L Absolute Lymphs (auto) 2.55 (1.0-4.6) x10^3/uL Absolute Monos (auto) 0.83 (0.0-1.3) x10^3/uL Absolute Nucleated RBC 0.00 (0.00-0.01) x10^3u/L Lymphocytes % 27.8 (24.0-44.0) % Monocytes % 9.1 (0.0-12.0) % Eosinophils % 2.0 (0.00-5.0) % Basophils % 0.7 (0.0-0.4) % Absolute Granulocytes 5.47 (1.4-6.9) x10^3/uL Basophils # 0.06 (0-0.4) x10^3/uL Sodium 138 (137-145) mmol/L Potassium 3.9 (3.5-5.1) mmol/L Chloride 105 (98-107) mmol/L Carbon Dioxide 24 (22-30) mmol/L Anion Gap 12.8 (5-15) MEQ/L BUN 11 (7-17) mg/dL Creatinine 0.69 (0.52-1.04) mg/dL Estimated GFR > 60.0 ML/MIN Glucose 117 H (74-106) mg/dL Calcium 11.5 H (8.4-10.2) mg/dL Total Bilirubin 0.60 (0.2-1.3) mg/dL AST 34 (14-36) U/L ALT 53 H (0-35) U/L Alkaline Phosphatase 92 (38-126) U/L Creatine Kinase 61 (30-135) U/L Troponin I < 0.012 (0.000-0.034) ng/mL NT-Pro-B Natriuret Pep < 20.0 (<300) pg/mL Serum Total Protein 7.5 (6.3-8.2) g/dL Albumin 4.4 (3.5-5.0) g/dL - Progress Progress: improved, re-examined Air Movement: good Progress Note: 10/19/22 07:45 46 years old female with history of hypertension presented to the ER with chief complaint of left jaw and arm pain. Patient reports last night she noted pain in the left arm and then short duration pain in the left chest before she went to bed. This morning she woke up with pain in the left jaw with radiation to left thumb, dull aching to sharp, moderate intensity without any significant aggravating or relieving factors. Denies associated shortness of breath or palpitations. Does have a positive family history of coronary artery disease. Denies any calf swelling, does not take any hormonal pills, no history of PE/DVT. Patient has a minimal ache currently. Does not want any pain medications. EKG showed sinus rhythm with ST depression in anterolateral leads. She is offered pain medication which she declined. Will obtain chest pain work-up. She is PERC negative. 10/19/22 09:16 On reevaluation patient is chest pain-free. Work-up showed normal white count, negative initial troponins. Chemistries showed calcium of 11.5 and patient has elevated calcium in the past and is in the process of parathyroidectomy. I have discussed with Dr. Gardiner hospitalist on-call, recommended repeating EKG and troponin and if negative patient will be admitted. Repeat EKG showed sinus rhythm at a rate of 65 bpm, normal axis, normal intervals, no ST depressions or elevations. I have discussed the results of work-up and plan of admission with patient who understand and agrees with it. Blood Culture(s) Obtained: No Antibiotics given: No Discussed with Dr.: Other (Dr. Gardiner hospitalist at 9 AM) Will see patient in: hospital (observation) Counseled pt/family regarding: lab results, diagnosis, rad results Medical Desision Making - Discussion of managment Care discussed with:: hospitalist (Dr. Gardiner at 9 AM) Reviewed:: Test results, Need for additional workup Agreed on:: Treatment plan, place in obs Will see patient: in hospital - Diagnostic Testing Diagnostic test were ordered, analyzed, and reviewed by me: Yes Radiological Interpretation: Interpreted by me, Reviewed by me - Risk of complications The pt has a high risk of morbidity or mortality based on: Decision regarding hospitilization or escalation of hosp level of care - Departure Departure Disposition: Home Clinical Impression: Chest pain, rule out acute myocardial infarction Condition: Stable Critical Care Time: No Referrals: LUDWIG FUENTES [ACTIVE STAFF] - Follow up/PCP as directed
[2022-10-19 07:50] LABS: ALBUMIN 4.4 g/dL (3.5-5.0); ALKALINE PHOSPHATASE 92 U/L (38-126); ANION GAP 12.8 MEQ/L (5-15); BLOOD UREA NITROGEN 11 mg/dL (7-17); CHLORIDE 105 mmol/L (98-107); CK-Creatinine Phosphokinase 61 U/L (30-135); Calcium 11.5 mg/dL (8.4-10.2); Carbon Dioxide 24 mmol/L (22-30); Creatinine 1 0.69 mg/dL (0.52-1.04); EST GLOMERULAR FILTRATION RATE > 60.0 ML/MIN; Glucose 117 mg/dL (74-106); Potassium 3.9 mmol/L (3.5-5.1); SGOT/AST 34 U/L (14-36); SGPT/ALT 53 U/L (0-35); SODIUM 138 mmol/L (137-145); Total Protein 7.5 g/dL (6.3-8.2)
[2022-10-19 08:01] LABS: NT PRO BNPII < 20.0 pg/mL (<300); TROPONIN < 0.012 ng/mL (0.000-0.034)
--- NOTE | 2022-10-19 08:39 | XRAY ---
Indication: Chest, left jaw, and arm pain. Comparison: June 09, 2020 Portable chest again demonstrates normal heart and lungs. Bony thorax intact. No new/acute findings.
[2022-10-19] MEDS ORDERED: HUMALOG SQ PRN (13:08)
[2022-10-19] MEDS: TYLENOL 325 MG PO PRN ×2 (13:51→20:53)
--- NOTE | 2022-10-19 15:43 | PCM.HP ---
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 She has an upcoming appointment for surgery of parathyroid. She presented to the ER with chief complaint of left jaw and arm pain. Patient reports last night she noted pain in the left arm and then short duration pain in the left chest before she went to bed. This morning she woke up with pain in the left jaw with radiation to left thumb, dull aching to sharp, moderate intensity without any significant aggravating or relieving factors. Denies associated shortness of breath or palpitations. She does have a positive family history of coronary artery disease. Denies any calf swelling, does not take any hormonal pills, no history of PE or DVT. She has had some nausea today and reports generally not feeling well. She reports 2 days ago she did have a sore throat. She takes ozempic for weight loss not DM. We will consult cardiology via tele. Obtain an echo and chest CT, lipid panel in AM. She denies any current CP. Troponins are negative. - Review of Systems Constitutional: No Fever, No Chills Eyes: No Symptoms Ears, Nose, & Throat: No Symptoms Respiratory: No Cough, No Short Of Breath Cardiac: No Chest Pain, No Edema, No Syncope Abdominal/Gastrointestinal: Nausea, No Abdominal Pain, No Vomiting, No Diarrhea Genitourinary Symptoms: No Dysuria Musculoskeletal: No Back Pain, No Neck Pain Skin: No Rash Neurological: No Dizziness, No Focal Weakness, No Sensory Changes Psychological: No Symptoms Endocrine: No Symptoms Hematologic/Lymphatic: No Symptoms Immunological/Allergic: No Symptoms Medications & Allergies Home Medications: Home Medication List Lisinopril/Hydrochlorothiazide [Lisinopril-Hctz 20-12.5 mg Tab] 1 each PO DAILY 08/25/19 [History Confirmed 10/19/22] Semaglutide [Ozempic] 0.25 mg SQ WEEKLY 10/19/22 [History Confirmed 10/19/22] Allergies/Adverse Reactions: Allergies Allergy/AdvReac Type Severity Reaction Status Date / Time No Known Drug Allergies Allergy Verified 10/19/22 07:09 - Past Medical History Past Medical History: Yes Neurological History: No Pertinent History ENT History: No Pertinent History Cardiac History: Hypertension Respiratory History: No Pertinent History Endocrine Medical History: No Pertinent History Musculoskelatal History: No Pertinent History GI Medical History: No Pertinent History History: No Pertinent History Pyscho-Social History: No Pertinent History Reproductive Disorders: Other - Female History Are you now?: No - Past Surgical History Past Surgical History: Yes Neuro Surgical History: No Pertinent History Cardiac History: No Pertinent History Respiratory Surgery: No Pertinent History GI Surgical History: Cholecystectomy Genitourinary Surgical Hx: No Pertinent History Musculskeletal Surgical Hx: No Pertinent History Female Surgical History: Tubal Ligation, Other Other Surgical History: uterine ablation 2020 - Social History Smoking Status: Never smoker Exposure to second hand smoke: No Alcohol: None Drug Use: none - Physical Exam Vital Signs: Vital Signs - 24 hr Temp Pulse Resp BP BP Pulse Ox 10/19/22 11:14 97.3 F 67 19 166/70 95 10/19/22 10:00 71 24 122/64 96 10/19/22 09:30 72 17 132/81 98 10/19/22 09:18 96 10/19/22 09:00 68 17 124/81 96 10/19/22 08:30 71 18 108/76 96 10/19/22 08:00 127/78 98 10/19/22 07:44 80 21 125/89 96 10/19/22 07:40 86 18 95 10/19/22 07:32 75 15 10/19/22 07:00 74 20 141/87 10/19/22 06:58 98.3 F 76 20 141/87 96 General Appearance: no apparent distress, alert Neurologic Exam: alert, oriented x 3, cooperative, normal mood/affect, nml cerebellar function, nml station & gait, sensation nml, No motor deficits Eye Exam: PERRL/EOMI, eyes nml inspection Ears, Nose, Throat Exam: normal ENT inspection, TMs normal, pharynx normal, mo ist mucous membranes Neck Exam: normal inspection, non-tender, supple, full range of motion Respiratory Exam: normal breath sounds, lungs clear, No respiratory distress Cardiovascular Exam: regular rate/rhythm, normal heart sounds, normal peripheral pulses Gastrointestinal/Abdomen Exam: soft, normal bowel sounds, No tenderness, No mass Back Exam: normal inspection, normal range of motion, No CVA tenderness, No vertebral tenderness Extremity Exam: normal inspection, normal range of motion, pelvis stable Skin Exam: normal color, warm, dry, No rash Lymphatic Exam: No adenopathy Results - Labs Lab/Micro Results: Lab Results-Last 24 Hours 10/19/22 10/19/22 10/19/22 Range/Units 07:30 07:30 07:30 WBC 9.2 (4.0-10.5) x10^3/uL RBC 5.04 (4.1-5.4) x10^6/uL Hgb 15.2 (12.0-16.0) g/dL Hct 45.7 (35-47) % MCV 90.7 (78-100) fL MCH 30.2 (26-32) pg MCHC 33.3 (32-36) g/dL RDW 13.1 (11.5-14.0) % Plt Count 377 (150-450) x10^3/uL MPV 10.2 (7.5-11.0) fL Gran % 59.6 (36.0-66.0) % Immature Gran % (Auto) 0.8 H (0.00-0.4) % Nucleat RBC Rel Count 0.0 (0.00-0.1) % Eos # (Auto) 0.18 (0-0.5) x10^3/uL Immature Gran # (Auto) 0.07 H (0.00-0.03) x10^3u/L Absolute Lymphs (auto) 2.55 (1.0-4.6) x10^3/uL Absolute Monos (auto) 0.83 (0.0-1.3) x10^3/uL Absolute Nucleated RBC 0.00 (0.00-0.01) x10^3u/L Lymphocytes % 27.8 (24.0-44.0) % Monocytes % 9.1 (0.0-12.0) % Eosinophils % 2.0 (0.00-5.0) % Basophils % 0.7 (0.0-0.4) % Absolute Granulocytes 5.47 (1.4-6.9) x10^3/uL Basophils # 0.06 (0-0.4) x10^3/uL Sodium 138 (137-145) mmol/L Potassium 3.9 (3.5-5.1) mmol/L Chloride 105 (98-107) mmol/L Carbon Dioxide 24 (22-30) mmol/L Anion Gap 12.8 (5-15) MEQ/L BUN 11 (7-17) mg/dL Creatinine 0.69 (0.52-1.04) mg/dL Estimated GFR > 60.0 ML/MIN Glucose 117 H (74-106) mg/dL Calcium 11.5 H (8.4-10.2) mg/dL Total Bilirubin 0.60 (0.2-1.3) mg/dL AST 34 (14-36) U/L ALT 53 H (0-35) U/L Alkaline Phosphatase 92 (38-126) U/L Creatine Kinase 61 (30-135) U/L Troponin I < 0.012 (0.000-0.034) ng/mL NT-Pro-B Natriuret Pep < 20.0 (<300) pg/mL Serum Total Protein 7.5 (6.3-8.2) g/dL Albumin 4.4 (3.5-5.0) g/dL 10/19/22 Range/Units 09:40 WBC (4.0-10.5) x10^3/uL RBC (4.1-5.4) x10^6/uL Hgb (12.0-16.0) g/dL Hct (35-47) % MCV (78-100) fL MCH (26-32) pg MCHC (32-36) g/dL RDW (11.5-14.0) % Plt Count (150-450) x10^3/uL MPV (7.5-11.0) fL Gran % (36.0-66.0) % Immature Gran % (Auto) (0.00-0.4) % Nucleat RBC Rel Count (0.00-0.1) % Eos # (Auto) (0-0.5) x10^3/uL Immature Gran # (Auto) (0.00-0.03) x10^3u/L Absolute Lymphs (auto) (1.0-4.6) x10^3/uL Absolute Monos (auto) (0.0-1.3) x10^3/uL Absolute Nucleated RBC (0.00-0.01) x10^3u/L Lymphocytes % (24.0-44.0) % Monocytes % (0.0-12.0) % Eosinophils % (0.00-5.0) % Basophils % (0.0-0.4) % Absolute Granulocytes (1.4-6.9) x10^3/uL Basophils # (0-0.4) x10^3/uL Sodium (137-145) mmol/L Potassium (3.5-5.1) mmol/L Chloride (98-107) mmol/L Carbon Dioxide (22-30) mmol/L Anion Gap (5-15) MEQ/L BUN (7-17) mg/dL Creatinine (0.52-1.04) mg/dL Estimated GFR ML/MIN Glucose (74-106) mg/dL Calcium (8.4-10.2) mg/dL Total Bilirubin (0.2-1.3) mg/dL AST (14-36) U/L ALT (0-35) U/L Alkaline Phosphatase (38-126) U/L Creatine Kinase (30-135) U/L Troponin I < 0.012 (0.000-0.034) ng/mL NT-Pro-B Natriuret Pep (<300) pg/mL Serum Total Protein (6.3-8.2) g/dL Albumin (3.5-5.0) g/dL - Radiology Impressions Radiology Exams & Impressions: Radiology Procedures Category Date Time Status CHEST 1 VIEW (PORTABLE) Stat Exams 10/19/22 07:27 Completed CHEST WITH CONTRAST [CT] Stat Exams 10/19/22 14:08 Ordered ECHO W/2D AND DOPPLER [US] Stat Exams 10/19/22 14:08 Ordered Assessment/Plan (1) Chest pain, rule out acute myocardial infarction Current Visit: Yes Status: Acute Assessment & Plan: - Tele- cardiology consult - EKG in ER reviewed - CT chest - echo - Trop negative x2 - 1 trop pending - tele - lipid panel in AM - CBC, CMP in AM - TSH Code(s): R07.9 - CHEST PAIN, UNSPECIFIED (2) Chronic hypertension Current Visit: Yes Status: Acute Assessment & Plan: - continue home meds Code(s): I10 - ESSENTIAL (PRIMARY) HYPERTENSION (3) Nausea Current Visit: Yes Status: Acute Assessment & Plan: - PRN zofran D/c plan- tomorrow Code(s): R11.0 - NAUSEA
[2022-10-19] MEDS: Zestril 20 MG PO SCH (15:50)
[2022-10-19] MEDS: hydroDIURIL 25 MG PO SCH (15:50)
--- NOTE | 2022-10-19 16:57 | XRAY ---
Indication: Left jaw pain radiating left arm. Pulmonary embolus. Multiple contiguous axial images obtained through the chest using 80 cc Isovue 370 contrast and PE protocol. Comparison: June 24, 2020 Good opacification of the pulmonary arteries to include the lobar and segmental branches. No pulmonary embolus. Heart not enlarged. Aorta is normal in course and caliber. Stable small left hilar calcified nodes. No pathologic mediastinal/hilar lymphadenopathy. Lungs demonstrates stable tiny left upper lobe calcified granuloma. No new pulmonary mass/nodule, infiltrate, effusion, or pneumothorax. Bony thorax intact with minimal degenerative changes throughout spine. Stable small T5 sclerotic lesion favored to be benign given stability over the years, probable bone island. Limited upper abdomen again demonstrates cholecystectomy and splenic calcified granulomas. Impression: 1. Negative pulmonary. No new/acute cardiopulmonary abnormalities. 2. Again chronic bony findings and old granulomatous disease.
[2022-10-19 17:07] LABS: Risk Ratio 3.7; TSH, 3RD Generation 0.325 mIU/L (0.47-4.68)
[2022-10-20 05:14] LABS: Hematocrit 45.2 % (35-47); Hemoglobin 15.2 g/dL (12.0-16.0); Mean Cell Volume 89.2 fL (78-100); Mean Corpuscular Hgb Concent. 33.6 g/dL (32-36); Mean Platelet Volume 10.2 fL (7.5-11.0); Platelet Count 386 x10^3/uL (150-450); Red Blood Count 5.07 x10^6/uL (4.1-5.4); Red Cell Distribution Width 13.2 % (11.5-14.0); White Blood Count 9.6 x10^3/uL (4.0-10.5)
[2022-10-20 05:42] LABS: ANION GAP 12.8 MEQ/L (5-15); BLOOD UREA NITROGEN 14 mg/dL (7-17); CHLORIDE 102 mmol/L (98-107); Calcium 11.4 mg/dL (8.4-10.2); Carbon Dioxide 25 mmol/L (22-30); Creatinine 1 0.74 mg/dL (0.52-1.04); EST GLOMERULAR FILTRATION RATE > 60.0 ML/MIN; Glucose 109 mg/dL (74-106); Potassium 3.9 mmol/L (3.5-5.1); SODIUM 136 mmol/L (137-145)
[2022-10-20 07:23] VITALS: RESP 15; O2SAT 95
--- NOTE | 2022-10-20 08:20 | PCM.DS ---
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 She has an upcoming appointment for surgery of parathyroid. She presented to the ER with chief complaint of left jaw and arm pain. Patient reports night before last she noted pain in the left arm and then short duration pain in the left chest before she went to bed. In the morning she woke up with pain in the left jaw with radiation to left thumb, dull aching to sharp, moderate intensity without any significant aggravating or relieving factors. Denies associated shortness of breath or palpitations. She does have a positive family history of coronary artery disease. Denies any calf swelling, does not take any hormonal pills, no history of PE or DVT. Nausea has resolved she is feeling better and ready to go home. She reports 2 days ago she did have a sore throat. She takes ozempic for weight loss not DM. Chest CT and lipid panel results discussed. Pt started on a low dose statin. She denies any current CP. Troponins are negative. Awaiting echo results to be read. Tele cardiology evaluated today and she can f/u OP per Dr. Saldivar's recommendations. [facility] will arange for a cardiolite tredmill test, excercise test, and possible repat echo. Then the pt will f/u with Dr. Saldivar at [facility] office. - Vitals & Intake/Output Vital Signs: Vital Signs Temperature 97.3 F 10/20/22 07:18 Pulse Rate 66 10/20/22 07:18 Respiratory Rate 15 10/20/22 07:18 Blood Pressure 119/85 10/20/22 07:18 O2 Sat by Pulse Oximetry 95 10/20/22 07:18 Intake & Output: Intake & Output 10/17/22 10/18/22 10/19/22 10/20/22 11:59 11:59 11:59 11:59 Intake Total 1140 Balance 1140 Weight 92.5 kg - Lab Result Diagrams: 10/20/22 04:38 10/20/22 04:38 Lab Results-Last 24 Hrs: Lab Results-Last 24 Hours 10/19/22 10/19/22 10/19/22 Range/Units 09:40 15:30 15:30 WBC (4.0-10.5) x10^3/uL RBC (4.1-5.4) x10^6/uL Hgb (12.0-16.0) g/dL Hct (35-47) % MCV (78-100) fL MCH (26-32) pg MCHC (32-36) g/dL RDW (11.5-14.0) % Plt Count (150-450) x10^3/uL MPV (7.5-11.0) fL Sodium (137-145) mmol/L Potassium (3.5-5.1) mmol/L Chloride (98-107) mmol/L Carbon Dioxide (22-30) mmol/L Anion Gap (5-15) MEQ/L BUN (7-17) mg/dL Creatinine (0.52-1.04) mg/dL Estimated GFR ML/MIN Glucose (74-106) mg/dL Calcium (8.4-10.2) mg/dL Troponin I < 0.012 < 0.012 (0.000-0.034) ng/mL Triglycerides 199 H (30-150) mg/dL Cholesterol 232 H (50-200) mg/dL LDL Cholesterol 131 H (30-100) mg/dL HDL Cholesterol 63 H (40-60) mg/dL Heart Disease Risk Ratio 3.7 TSH 3rd Generation 0.325 L (0.47-4.68) mIU/L 10/19/22 10/20/22 10/20/22 Range/Units 19:10 04:38 04:38 WBC 9.6 (4.0-10.5) x10^3/uL RBC 5.07 (4.1-5.4) x10^6/uL Hgb 15.2 (12.0-16.0) g/dL Hct 45.2 (35-47) % MCV 89.2 (78-100) fL MCH 30.0 (26-32) pg MCHC 33.6 (32-36) g/dL RDW 13.2 (11.5-14.0) % Plt Count 386 (150-450) x10^3/uL MPV 10.2 (7.5-11.0) fL Sodium 136 L (137-145) mmol/L Potassium 3.9 (3.5-5.1) mmol/L Chloride 102 (98-107) mmol/L Carbon Dioxide 25 (22-30) mmol/L Anion Gap 12.8 (5-15) MEQ/L BUN 14 (7-17) mg/dL Creatinine 0.74 (0.52-1.04) mg/dL Estimated GFR > 60.0 ML/MIN Glucose 109 H (74-106) mg/dL Calcium 11.4 H (8.4-10.2) mg/dL Troponin I < 0.012 (0.000-0.034) ng/mL Triglycerides (30-150) mg/dL Cholesterol (50-200) mg/dL LDL Cholesterol (30-100) mg/dL HDL Cholesterol (40-60) mg/dL Heart Disease Risk Ratio TSH 3rd Generation (0.47-4.68) mIU/L 10/20/22 Range/Units 04:38 WBC (4.0-10.5) x10^3/uL RBC (4.1-5.4) x10^6/uL Hgb (12.0-16.0) g/dL Hct (35-47) % MCV (78-100) fL MCH (26-32) pg MCHC (32-36) g/dL RDW (11.5-14.0) % Plt Count (150-450) x10^3/uL MPV (7.5-11.0) fL Sodium (137-145) mmol/L Potassium (3.5-5.1) mmol/L Chloride (98-107) mmol/L Carbon Dioxide (22-30) mmol/L Anion Gap (5-15) MEQ/L BUN (7-17) mg/dL Creatinine (0.52-1.04) mg/dL Estimated GFR ML/MIN Glucose (74-106) mg/dL Calcium (8.4-10.2) mg/dL Troponin I (0.000-0.034) ng/mL Triglycerides (30-150) mg/dL Cholesterol (50-200) mg/dL LDL Cholesterol (30-100) mg/dL HDL Cholesterol (40-60) mg/dL Heart Disease Risk Ratio TSH 3rd Generation 0.500 (0.47-4.68) mIU/L - Radiology Exams Ordered Rad Exams-Entire Visit: Radiology Procedures Category Date Time Status CHEST 1 VIEW (PORTABLE) Stat Exams 10/19/22 07:27 Completed CHEST WITH CONTRAST [CT] Stat Exams 10/19/22 14:08 Completed ECHO W/2D AND DOPPLER [US] Stat Exams 10/19/22 14:08 Taken Discharge Exam General Appearance: no apparent distress, alert Neurologic Exam: alert, oriented x 3, cooperative, normal mood/affect, nml cerebellar function, sensation nml, No motor deficits Eye Exam: PERRL, EOMI, eyes nml inspection Ears, Nose, Throat Exam: normal ENT inspection, pharynx normal, moist mucous membranes Neck Exam: normal inspection, non-tender, supple, full range of motion Respiratory Exam: normal breath sounds, lungs clear, No respiratory distress Cardiovascular Exam: regular rate/rhythm, normal heart sounds Gastrointestinal/Abdomen Exam: soft, No tenderness, No mass Pelvic Exam: deferred Rectal Exam: deferred Back Exam: normal inspection, normal range of motion, No CVA tenderness, No vertebral tenderness Extremity Exam: normal inspection, normal range of motion Skin Exam: normal color, warm, dry Final Diagnosis/Problem List - Final Discharge Diagnosis/Problem (1) Chest pain, rule out acute myocardial infarction Current Visit: Yes Status: Acute Assessment & Plan: - Tele- cardiology consult with Dr. Saldivar - EKG in ER reviewed - CT chest reviewed and discussed - echo- pending- f/u with cardiology to review - Trops negative x3 - tele - lipid panel reviewed and discussed - Started atorvastatin- pt refused - CBC, CMP - reviewed - TSH- WNL this AM when fasting Code(s): R07.9 - CHEST PAIN, UNSPECIFIED (2) Chronic hypertension Current Visit: Yes Status: Acute Assessment & Plan: - continue home meds Code(s): I10 - ESSENTIAL (PRIMARY) HYPERTENSION (3) Nausea Current Visit: Yes Status: Acute Assessment & Plan: - PRN zofran - resolved Code(s): R11.0 - NAUSEA (4) Hyperlipidemia Current Visit: Yes Status: Acute Assessment & Plan: - started atorvastatin 20mg daily- pt refused IP - Discussed diet and exercise for lowering lipids Code(s): E78.5 - HYPERLIPIDEMIA, UNSPECIFIED - Discharge Discharge Date: 10/20/22 Disposition: Home, Self-Care Condition: Stable Prescriptions: Continue Lisinopril/Hydrochlorothiazide [Lisinopril-Hctz 20-12.5 mg Tab] 1 each PO DAILY Semaglutide [Ozempic] 0.25 mg SQ WEEKLY Follow up with: ARLENE RAMIREZ MD [Primary Care Provider] -
[2022-10-20] MEDS ORDERED: LIPITOR 40MG PO STA (09:48)
[2022-10-20] MEDS ORDERED: ZOCOR 20MG PO STA (09:59)
[2022-10-20] MEDS ORDERED: ECOTRIN 81 MG PO SCH (10:00)
[2022-10-20] MEDS ORDERED: NON-FORMULARY ITEM (Lisinopril/Hydrochlorothiazide [Lisinopril-Hctz 20-12.5 Mg Tab] 1 EACH PO SCH (10:00)
[2022-10-20] MEDS: hydroDIURIL 25 MG PO SCH (10:47)
[2022-10-20] MEDS: Zestril 20 MG PO SCH (10:47)
[2022-10-20 11:50] VITALS: BP 120/65; PULSE 73; TEMP 97.7
[2022-10-20] MEDS ORDERED: Zocor 10MG PO SCH (22:00)
--- NOTE | 2022-10-24 10:25 | ECHO ---
DATE: 10/19/2022 INDICATION: Chest pain. The M-mode, 2D, and Doppler echocardiogram including color flow Doppler shows the left ventricle is normal in size. There is no thrombus present. The wall thickness is normal. The contractility is normal. The ejection fraction is calculated to be 75%. The right ventricle is grossly normal. The left atrium is normal in size. The interatrial septum is intact. The right atrium is not well visualized. The aortic valve opens well. There is no aortic regurgitation. There is mitral valve leaflet thickening with mild early systolic prolapse. There is mild tricuspid regurgitation. There is mild mitral regurgitation. The right ventricular systolic pressure is calculated to be 28 mm Hg. The pulmonic valve is not well visualized. The aortic root is normal. There is no pericardial effusion present. IMPRESSION: 1. NORMAL CONTRACTILITY OF THE LEFT VENTRICLE. 2. MILD MITRAL REGURGITATION ASSOCIATED WITH MILD EARLY PROLAPSE. 3. MILD TRICUSPID REGURGITATION. 4. NORMAL RIGHT VENTRICULAR SYSTOLIC PRESSURE.
== END 2022-10-20 12:56 | disposition home or self-care (01) ==
LOC: ED 06:50 → MED SURG 11:02
PROVIDERS: ADMIT Internal Medicine; ATTEND Internal Medicine
DX: R07.9 Chest pain, unspecified (principal); I10 Essential (primary) hypertension; R11.0 Nausea; E78.5 Hyperlipidemia, unspecified; C75.0 Malignant neoplasm of parathyroid gland; Z79.899 Other long term (current) drug therapy; Z20.828 Contact with and (suspected) exposure to other viral communicable diseases
CPT/HCPCS: 36000; 36415; 71045; 71260; 80048; 80053; 80061; 82550; 83721; 83880; 84443; 84484; 85025; 85027; 93005; 93041; 93268; 93306; 99285; G0378; Q3014; A9270-GY